=== PATIENT | female | born 1980 | race Caucasian/White ===

== ENCOUNTER 2023-12-02 21:09 | Emergency (ER) | payer OTHER ==
[~2023-12-02] VITALS: Ht 165.1 cm; Wt 77.3 kg
[~2023-12-02 21:09] MED LIST: ZOFRAN ODT4 MG PO
[2023-12-02 21:17] VITALS: TEMP 98.1
[2023-12-02] MEDS ORDERED: MEDROL 4MG DOSPA4 MG PO (21:46)
[2023-12-02 22:00] VITALS: BP 125/60; PULSE 81
== END 2023-12-02 22:00 | disposition home or self-care (01) ==
LOC: COL.ER 21:09
DX: M77.8 Other enthesopathies, not elsewhere classified (principal)
CPT/HCPCS: J7512